=== PATIENT | male | born 1945 | race Caucasian/White ===

== ENCOUNTER 2020-09-23 18:44 | Emergency (ER) | payer MEDICARE, OTHER ==
[~2020-09-23] VITALS: Ht 172 cm; Wt 77.0 kg
[~2020-09-23 18:44] MED LIST: CETI10TA17 PO; CHOL20003 PO; DIPH25TA82 PO; FAMO20TA5 PO; HYDR-3870 PO; LEVO112T55 PO; LEVO250T11 PO; LVT.112T PO; METH4TAB PO; SIMV20TA26 PO; UBID100C17 PO; VIT D PO
--- NOTE | 2020-09-23 19:08 | ED Lower Extremity ---
General Chief Complaint: Lower Extremity Stated Complaint: R ANKLE INJ Nursing Triage Note: PT REPORTS TO ED FOR RT ANKLE PAIN DUE TO A FALL THAT HAPPENED AROUND 1800. PT WAS CLOSING HIS SHOP WHEN HE ROLLED HIS RIGHT ANKLE AND FELL ONTO HIS LEFT KNEE. PT DENIES KNEE PAIN. PT AMB. TO FT2 WITHOUT DIFFICULTY. Nursing Sepsis Screen: No Definite Risk Source: patient Exam Limitations: no limitations History of Present Illness Date Seen by Provider: Sep 23, 2020 Time Seen by Provider: 18:56 Initial Comments Patient to the ER with his significant other and chief complaint just 1 hour prior to arrival he was stepping over his [place] slipped and rolled his right ankle. He now has swelling and pain on the lateral malleolus on the right side. He has not taken anything for it. He took a shower and noticed significant swelling. No previous injury or fracture. Allergies and Home Medications Allergies Coded Allergies: No Known Drug Allergies (Unverified , 10/01/10) Home Medications Cholecalciferol (Vitamin D3) 2,000 Unit Capsule, 2,000 UNIT PO DAILY, (Reported) Hydrocodone/Acetaminophen 1 Each Tablet, 1-2 EACH PO Q4H PRN for PAIN Prescribed by: MOR DAS on 05/01/15 1115 Levofloxacin 250 Mg Tablet, 250 MG PO DAILY Prescribed by: MOR DAS on 05/01/15 1117 Levothyroxine Sodium 112 Mcg Tablet, 112 MCG PO DAILY, (Reported) Simvastatin 20 Mg Tablet, 20 MG PO EVERY OTHER DAY, (Reported) Ubidecarenone 100 Mg Capsule, 100 MG PO EVERY OTHER DAY, (Reported) TAKES ON SAME DAY SIMVASTATIN Patient Home Medication List Home Medication List Reviewed: Yes Review of Systems Constitutional: No chills, No diaphoresis EENTM: No ear discharge, No ear pain Respiratory: No cough, No short of breath Cardiovascular: No chest pain, No edema Gastrointestinal: No abdominal pain, No nausea, No vomiting All Other Systems Reviewed Negative Unless Noted: Yes Past Ebtjevt-Loofzw-Lhcuzb Hx Patient Social History Alcohol Use: Rarely Uses Alcohol Beverage of Choice: Beer Smoking Status: Never a Smoker Recent Infectious Disease Expo: No Recent Hopitalizations: No Seasonal Allergies Seasonal Allergies: No Past Medical History Surgeries: Yes (RIGHT INGUINAL HERNIA) Prostatectomy Respiratory: No Cardiac: No Neurological: No Reproductive Disorders: No Sexually Transmitted Disease: No HIV/AIDS: No Prostate Problems Gastrointestinal: Yes Polyps Musculoskeletal: No Endocrine: Yes Hypothyroidsim Loss of Vision: Denies Hearing Impairment: Denies Cancer: Yes Prostate Psychosocial: No Integumentary: No Blood Disorders: No Adverse Reaction/Blood Tranf: No Physical Exam Vital Signs Vital Signs - First Documented 09/23/20 18:52 Temp 37.2 Pulse 63 Resp 18 B/P (MAP) 123/69 (87) O2 Delivery Room Air Capillary Refill : Less Than 3 Seconds Height, Weight, BMI Height: 5'8.00" Weight: 183lbs. oz. 83.711781vg; 26.00 BMI Method: General Appearance: WD/WN, no apparent distress HEENT: PERRL/EOMI, pharynx normal Cardiovascular: normal peripheral pulses, regular rate, rhythm Respiratory: no respiratory distress, no accessory muscle use Knees: bilateral knee non-tender, bilateral knee normal inspection, bilateral knee normal range of motion, bilateral knee no evidence of injury Ankles: left ankle non-tender, left ankle normal inspection, left ankle normal range of motion, left ankle no evidence of injury; right ankle abrasions/lacerations (Minor superficial abrasion anterior garcia right side), rig ht ankle bone tenderness (Posterior portion of the lateral malleolus of the right ankle), right ankle soft tissue tenderness, right ankle swelling (Laterally) Neurologic/Psychiatric: no motor/sensory deficits, alert, normal mood/affect Skin: warm/dry, ecchymosis Progress/Results/Core Measures Results/Orders My Orders Orders - DEENA GUALLPA Ankle, Right, 3 Views (09/23/20 19:06) Vital Signs/I&O 09/23/20 18:52 Temp 37.2 Pulse 63 Resp 18 B/P (MAP) 123/69 (87) O2 Delivery Room Air Blood Pressure Mean: 87 Progress Progress Note : Time: 19:08 Progress Note X-ray of the right ankle, ice pack. Diagnostic Imaging Diagonstic Imaging: Xray Plain Films/CT/US/NM/MRI: ankle (Right) Comments NAME: [facility] REC#: [id number] PT STATUS: REG ER : 1945 PHYSICIAN: DEENA GUALLPA MD ADMIT DATE: 09/23/20/ER Draft Date of Exam:09/23/20 ANKLE, RIGHT, 3 VIEWS INDICATION: Right ankle pain due to fall today. FINDINGS: Three views of the right ankle demonstrate soft tissue swelling. No fracture or dislocation is present. IMPRESSION: Soft tissue swelling of the right ankle with no osseous abnormalities. Dictated on workstation # [id number] Dict: 09/23/201940 Trans: 09/23/201943 AS6 [id number] Interpreted by: ADARSH MASCORRO MD Electronically signed by: Reviewed: Reviewed by Me Departure Impression Primary Impression: Right ankle sprain Qualified Codes: S93.401A - Sprain of unspecified ligament of right ankle, initial encounter Disposition: HOME, SELF-CARE Condition: Stable Departure-Patient Inst. Decision time for Depature: 19:47 Referrals: ROSALIND MACIAS MD (PCP) Primary Care Physician Florentin LIVINGSTON MD (Family) Primary Care Physician Patient Instructions: Ankle Sprain (DC) Add. Discharge Instructions: Ice pack on 20 minutes every 2 hours for the first 3 days. Elevate your leg when not in use. Compression wrap to reduce swelling. Crutches as necessary for the next 1 to 2 weeks. Tylenol and Motrin as necessary for pain. Follow-up with your primary care doctor if you are not seeing improvement in the next 7 to 10 days. All discharge instructions reviewed with patient and/or family. Voiced understanding. DEENA GUALLPA Sep 23, 2020 19:08
--- NOTE | 2020-09-23 19:44 | Diagnostic Imaging Report ---
INDICATION: Right ankle pain due to fall today. FINDINGS: Three views of the right ankle demonstrate soft tissue swelling. No fracture or dislocation is present. IMPRESSION: Soft tissue swelling of the right ankle with no osseous abnormalities. Dictated by: Dictated on workstation # [id number]
[2020-09-23 19:55] VITALS: BP 123/69
== END 2020-09-23 19:55 | disposition home or self-care (01) ==
LOC: EDUNIT# 18:44 → ER 18:45
DX: S93.401A Sprain of unspecified ligament of right ankle, initial encounter (principal); E03.9 Hypothyroidism, unspecified; Z79.890 Hormone replacement therapy; Z79.899 Other long term (current) drug therapy; X50.1XXA Overexertion from prolonged static or awkward postures, initial encounter
CPT/HCPCS: 73610